=== PATIENT | male | born 1955 | race Caucasian/White ===

== ENCOUNTER → 2021-07-31 | Day surgery (SDC) | payer OTHER ==
[~2021-07-31] VITALS: Ht 180.3 cm; Wt 93.9 kg
[~2021-07-31] MED LIST: LIPITOR40 MG PO
== END | disposition home or self-care (01) ==
LOC: FAS 08:11
DX: Z12.11 Encounter for screening for malignant neoplasm of colon (principal); D12.3 Benign neoplasm of transverse colon; D12.8 Benign neoplasm of rectum; K57.30 Diverticulosis of large intestine without perforation or abscess without bleeding; F17.290 Nicotine dependence, other tobacco product, uncomplicated; K40.90 Unilateral inguinal hernia, without obstruction or gangrene, not specified as recurrent; E78.00 Pure hypercholesterolemia, unspecified; Z80.0 Family history of malignant neoplasm of digestive organs; Z98.890 Other specified postprocedural states
CPT/HCPCS: J2250; J2704; J7120

== ENCOUNTER → 2021-08-14 | Day surgery (SDC) | payer OTHER ==
[~2021-08-14] VITALS: Ht 180.3 cm; Wt 92.5 kg
[~2021-08-14] MED LIST changes: +PERCOCET 5-3251 EACH PO
== END | disposition home or self-care (01) ==
LOC: FAS 08:26
DX: K40.90 Unilateral inguinal hernia, without obstruction or gangrene, not specified as recurrent (principal); D17.6 Benign lipomatous neoplasm of spermatic cord; F17.290 Nicotine dependence, other tobacco product, uncomplicated; E78.00 Pure hypercholesterolemia, unspecified; Z98.890 Other specified postprocedural states; Z79.899 Other long term (current) drug therapy
CPT/HCPCS: C1781; J0690; J1100; J1885; J2250; J2405; J2704; J2710; J3010; J7120